=== PATIENT | male | born 1960 ===

== ENCOUNTER 2019-12-23 01:07 | Inpatient (IN) ==
[2019-12-23] MEDS ORDERED: ZOFRAN IV ONE (01:38)
--- NOTE | 2019-12-23 01:51 | PROVIDER DOCUMENTATION ---
This chart was entered by Jessica Meier Scribe, acting as scribe for Ana Paula Royal MD. HPI-General Adult - General Chief Complaint: Nausea Stated Complaint: DECREASED APPETITE, NAUSEATED Time Seen by Provider: 12/23/19 01:18 Source: patient Allergies/Adverse Reactions: Patient Allergies Allergy/AdvReac Type Severity Reaction Status Date / Time No Known Allergies Allergy Verified 12/23/19 01:51 Home Medications: Home Medication List Medication Instructions Recorded Confirmed Last Taken Type Ondansetron Odt [Zofran Odt] 1 tab PO TID PRN 12/23/19 12/23/19 Unknown History Paroxetine [Paxil] 1 tab PO DAILY 12/23/19 12/23/19 Unknown History Ranitidine [Zantac] 1 tab PO DAILY 12/23/19 12/23/19 Unknown History - History of Present Illness -Gen Adult Nature of Presenting Problems: pt is a 59 yr old male presenting with 1 week complaint of nausea and decreased appetite, pt denies fever/chills, no vomiting or diarrhea. pt admits he was seen for same today at [facility], was given IV fluids but unsure what if any other medications or tests were given. pt admits he is from [place] and that he came to stay with son locally 12/05/19. pt denies any cold or respiratory complaints, denies abdominal pain Location of Pain/Injury: reports: none Pain Radiation: reports: no radiation Quality of Pain: reports: none Severity: reports: moderate Onset/Duration: reports: 1 week ago Timing: reports: still present Context/Activities at Onset: reports: light activity Modifying Factors: improves with: other medication (unknwon medications given at [facility]) Associated Symptoms: reports: loss of appetite, nausea. denies: diarrhea, fever/chills, shortness of breath, vomiting Similar Symptoms Previously?: Yes Recently seen or treated by another doctor?: Yes Review of Systems - Adult - REVIEW OF SYSTEMS - ADULT Constitutional: denies: chills, fever Eyes: reports: no symptoms reported Ears, Nose, Mouth & Throat: reports: no symptoms reported Cardiovascular: denies: chest pain, syncope Respiratory: denies: cough, shortness of breath Gastrointestinal: reports: nausea, poor appetite. denies: abdominal pain, diarrhea, vomiting Genitourinary: denies: dysuria, frequency Musculoskeletal: denies: back pain, muscle aches, muscle weakness Integumentary: reports: no symptoms reported Neurological: denies: dizziness/vertigo, headache/migraines, syncope Psychiatric: reports: no symptoms reported Endocrine: reports: no symptoms reported Hematologic/Lymphatic: reports: no symptoms reported Allergic/Immunologic: reports: no symptoms reported All Other Systems: Reviewed and Negative Past History - Adult - PAST MEDICAL HISTORY-ADULT Review of Records: reports: Nursing Assessment Review, Medications Reviewed, Social history reviewed & non-contributory. Major Childhood Illnesses: reports: denies history Cardiovascular: reports: denies history Respiratory: reports: denies history Gastrointestinal: reports: denies history Obstetrical/Gynecological: reports: denies history Genitourinary: reports: denies history Musculoskeletal: reports: denies history Neurological: reports: denies history Endocrine/Immune: reports: denies history Other Conditions: reports: denies history - IMMUNIZATION STATUS Childhood Immunizations: See Nurse Assessment Flu Vaccine: See Nurse Assessment - FAMILY HISTORY Family History: reviewed, not pertinent - SOCIAL HISTORY Living Situation: family Physical Exam-General - PHYSICAL EXAM-ADULT Initial Vital Signs Reviewed: Yes - CONSTITUTIONAL General Appearance: appears well, alert, no apparent distress - EYES Eyes: PERRL/EOMI - HEAD, EARS, NOSE, MOUTH & THROAT HENMT: normocephalic/atraumatic - NECK Neck: supple, normal inspection - RESPIRATORY Respiratory: chest non-tender, lungs clear, normal breath sounds, no respiratory distress, no accessory muscle use - CARDIOVASCULAR Cardiovascular: normal peripheral pulses, no edema, bradycardia - GASTROINTESTINAL (ABDOMEN) Abdominal Exam: normal bowel sounds, non tender, soft. negative: distended, guarding, rigid, rebound - LYMPHATIC Lymphatic: no adenopathy - MUSCULOSKELETAL Back Exam: normal inspection, no CVA tenderness, no vertebral tenderness Extremity: normal range of motion, non-tender, normal inspection, no pedal edema - SKIN Integumentary: normal color, normal turgor, warm/dry - NEUROLOGIC Neurologic: grossly normal, no motor/sensory deficits - PSYCHIATRIC Psych/Mental Status: normal mood/affect, oriented x 3 Progress - PLAN OF CARE/RESULTS Progress/Plan/Lab Results: Vital Signs - 8 hr 12/23/19 01:12 Temperature 98 F Pulse Rate 61 Respiratory Rate 15 Blood Pressure 152/90 O2 Sat by Pulse Oximetry 100 Orders Category Date Time Status Saline Loc NOW Care 12/23/19 01:38 Active CHEST-PORTABLE [RAD] Stat Exams 12/23/19 01:[address] ABD/PELVIS W/IV CONT ONLY [CT] Stat Exams 12/23/19 01:36 Ordered CBC WITH ELECTRONIC DIFF [HEME] Stat Lab 12/23/19 01:36 Uncollected COMPREHENSIVE METABOLIC PANEL [CHEM] Stat Lab 12/23/19 01:36 Uncollected LIPASE [CHEM] Stat Lab 12/23/19 01:36 Uncollected MAGNESIUM [CHEM] Stat Lab 12/23/19 01:38 Uncollected TROPONIN T HIGH SENSITIVITY Stat Lab 12/23/19 01:36 Uncollected URINALYSIS W/POSS RFLX CULT [URINALYSIS] Stat Lab 12/23/19 01:36 Uncollected URINE DRUG SCREEN Stat Lab 12/23/19 01:36 Uncollected Ondansetron [Zofran] Med 12/23/19 01:38 Discontinued 4 mg IV NOW ONE Result Diagrams: 12/23/19 01:50 12/23/19 01:50 - EKG 1 Time of EKG reading by physician:: 03:15 EKG Read and Signed by:: Ana Paula Royal EKG Interpretation (*Must complete 3 of following elements*): Normal Rate: 68 Rhythm: NSR [place]: normal QRS: normal CA Interval: normal ST Wave: normal Prior EKG Comparison: no prior EKG - XRAY 1 XRAY Study: Chest Impression: Normal - CT/MRI 1 CT Study: Abdomen (indeterminate solid, left paraspinal pelvic soft tissue mass. Given positionneurogenic tumor vs extra adrenal pheochromocytoma are considerations. Consider non emergent MRI. Also consider VMA levels and non emergent MIBG) - CONSULTS/PCP/HOSPITALIST Notification #1 *Consult/PCP/Hospitalist*: Dr Naik Time Discussed: 02:46 Consult Disposition: Admit (Hold off on giving IVF and he will order what he would like.) Departure - Departure Date of Disposition Decision: 12/23/19 Time of Disposition Decision: 02:48 DIAGNOSIS: Hyponatremia, Nausea Abdominal mass Qualifiers: Abdominal location: other location Qualified Code(s): R19.09 - Other intra- abdominal and pelvic swelling, mass and lump Disposition: ADMITTED INPATIENT 09 Certified Medical Emergency: Emergent Condition: Stable - Critical Care Note This patient required my direct & personal management of CC.: No Attestation - Physician/ CATY Attestation Patient care was provided by Advanced Practice Provider:: No The physician spent face to face time with patient:: Yes Advanced Practice Provider documentation review:: Supervising physician onsite and consulted in the evaluation and care of this patient. The physician did have a face to face encounter with the patient. This chart was documented by the indicated scribe, (Jessica Meier Scribe) and accurately reflects the services I performed and decisions made by me, Ana Paula Royal MD, as attested by the provider's signature.
[2019-12-23 02:08] LABS: BASO# 0.06 X1000 (0.0-0.2); BASO% 0.7 % (0.0-0.8); EOS# 0.21 X1000 (0.0-0.7); EOS% 2.5 % (0.0-10.0); HEMATOCRIT 35.5 % (42.0-52.0); HEMOGLOBIN 12.1 g/dL (14.0-18.0); LYMPH# 4.12 X1000 (1.2-3.4); LYMPH% 48.5 % (20.5-51.1); MCH 25.7 PG (27-31); MCHC 34.1 g/dL (33-37); MCV 75.5 FL (81-99); MONO# 0.55 X1000 (0.11-0.59); MONO% 6.5 % (1.7-9.3); MPV 10.4 FL (7.4-10.4); NEUT# 3.56 X1000 (1.4-6.5); NEUT% 41.8 % (42.2-75.2); PLT 216 X1000 (130-400); RDW 12.6 % (11.5-14.5)
[2019-12-23 02:41] LABS: AGAP 11; ALB/GLOB RATIO 1.4; ALKALINE PHOSPHATASE 49 U/L (32-122); BUN 12 mg/dL (8-22); CALCIUM 8.3 mg/dL (8.8-10.2); CHLORIDE 83 mmol/L (98-107); COSMO 234; CREATININE 0.8 mg/dL (0.7-1.2); GLUCOSE 96 mg/dL (70-104); GOT 28 U/L (10-34); GPT 18 U/L (10-44); LIPASE 17 U/L (13-60); MAGNESIUM 1.6 mg/dL (1.5-2.7); SODIUM 114 mmol/L (136-145); TCO2 22 mmol/L (25-35); TOTAL BILIRUBIN 0.61 mg/dL (0.20-1.00); TOTAL PROTEIN 6.9 g/dL (6.3-8.3)
[2019-12-23 02:48] LABS: URINE SOURCE CLEAN CATCH
[2019-12-23 02:51] LABS: BILIRUBIN URINE NEGATIVE (NEGATIVE); BLOOD URINE NEGATIVE (NEGATIVE); COLOR YELLOW; GLUCOSE URINE NEGATIVE (NEGATIVE); KETONE URINE NEGATIVE (NEGATIVE); LEUKOCYTES URINE NEGATIVE (NEGATIVE); NITRITE URINE NEGATIVE (NEGATIVE); PH URINE 7.5; PROTEIN URINE NEGATIVE (NEGATIVE); SP GRAVITY URINE 1.013; TURBIDITY URINE HAZY (CLEAR); UROBILINOGEN URINE NORMAL (NORMAL)
[2019-12-23 02:53] LABS: UR EPITHELIAL CELLS <10 /HPF (<10); URINE BACTERIA NEGATIVE /HPF; URINE RBC <10 /HPF (<10); URINE WBC <10 /HPF (<10)
[2019-12-23 03:05] LABS: UR AMPHETAMINES QUAL NONE DETECTED (NONE DETECT); UR BARBITUATES QUAL NONE DETECTED (NONE DETECT); UR BENZODIAZEPIN QUAL NONE DETECTED (NONE DETECT); UR CANNABINOIDS QUAL NONE DETECTED (NONE DETECT); UR COCAINE QUAL NONE DETECTED (NONE DETECT); UR METHADONE QUAL NONE DETECTED (NONE DETECT); UR OPIATES QUAL NONE DETECTED (NONE DETECT); UR OXYCODONE QUAL NONE DETECTED (NONE DETECT); UR PCP QUAL NONE DETECTED (NONE DETECT)
[2019-12-23] MEDS ORDERED: NACL 3% IV ONE (03:10)
[2019-12-23] MEDS ORDERED: SODIUM CHLORIDE 0.9% INJ ONE (03:21)
[2019-12-23] MEDS ORDERED: PHENERGAN IV ONE (03:21)
[2019-12-23 04:01] LABS: MAGNESIUM 1.5 mg/dL (1.5-2.7); PHOSPHORUS 3.5 mg/dL (2.7-4.5)
--- NOTE | 2019-12-23 04:04 | EKG Report ---
Test Performed on : 12/23/2019 03:12:59 AM Test Reason : hyponatremia Blood Pressure : / mmHG Vent. Rate : 068 BPM Atrial Rate : 068 BPM P-R Int : 210 ms QRS Dur : 104 ms QT Int : 454 ms P-R-T Axes : 047 050 067 degrees QTc Int : 482 ms Sinus rhythm. with 1st degree AV block. Otherwise normal ECG No previous ECGs available Confirmed by Lele Thibodeaux MD ([id number]) on 12/24/2019 4:34:56 PM
[2019-12-23] MEDS ORDERED: TYLENOL PO PRN (04:36)
--- NOTE | 2019-12-23 04:42 | HISTORY AND PHYSICAL ---
PRIMARY CARE PHYSICIAN: No PCP. HISTORY OF PRESENT ILLNESS: Mr. Segura is a 59-year-old man of [place] extraction from [place], who comes in complaining of 1 month history of nausea but no vomiting. He has tried several times to induce emesis without any success. He denies any denies any abdominal pain, but he says his appetite has been declining and he has lost about 25 pounds over the last 3 months. He denies any dysphagia, but over the last week he has been having occasional night sweats but no fever. No upper respiratory or cardiorespiratory symptoms. No genitourinary complaints. He denies any arthralgia or rash. He says his bowel movements have not changed and denies any melena or hematochezia. Says he is frequently belching too. Also, admits to having generalized weakness. REVIEW OF SYSTEMS: Twelve system review was done. Positive findings per HPI. ALLERGIES: No known allergies. SOCIAL HISTORY: Does not smoke, drink, or use drugs. He is currently residing with his son. HOME MEDICATIONS: Zofran 4 mg t.i.d. p.r.n., Paxil 10 mg daily, Zantac 150 mg daily. FAMILY HISTORY: Negative for heart disease, cancer, or diabetes. LABORATORY WORK: Notable for white count 8000, hemoglobin and hematocrit 12 and 35, platelets of 216,000, MCV of 75. Sodium is 114, BUN is 12, creatinine 0.8, magnesium is 1.6. Lipase is normal. UDS is negative. Urinalysis normal. CT abdomen preliminary report shows a 2 x 3 cm left paraspinal mass near the area of the iliac artery bifurcation. Could represent possible neuroendocrine tumor along the left sympathetic chain. Chest film is rotated, normal cardiac size. No overt mass or infiltrate noted. PHYSICAL EXAMINATION: VITAL SIGNS: Blood pressure 143/93, temperature is 98.1, respiratory rate is 20, pulse rate is 69, 100% on room air. GENERAL: He is a middle-aged [place] man who is not in acute distress. He is A and O x3 with normal mood and affect. HEENT: Head is normocephalic, atraumatic. Eyes, MATT. EOMI is intact. He is anicteric, not pale. ENT and oropharynx exam is normal. No cyanosis NECK: Supple. No JVD or carotid bruit. No thyromegaly. No cervical or supraclavicular lymphadenopathy. CHEST: Clear when auscultated in both lung fontanez. CARDIOVASCULAR: First and second heart sounds heard. No gallops, rubs. Rhythm is regular. ABDOMEN: Slightly distended, soft with no focal areas of tenderness. No mass or organomegaly. RECTAL: Exam is deferred. EXTREMITIES: The patient has good distal pulse volumes, regular, symmetrical. No edema, clubbing or peripheral cyanosis. NEUROLOGICAL: No gross focal deficits. SKIN: Intact. No breakdown, lesions or erythema. MUSCULOSKELETAL: Exam is grossly normal. ASSESSMENT: 1. Euvolemic, hypotonic, hyponatremia, probably secondary to paroxetine. 2. Microcytic anemia. 3. Left soft tissue paraspinal mass. Etiology yet to be determined. PLAN: 1. We will cautiously replace sodium at a rate of 0.3 millimoles per hour avoiding over- correction. We will check BMP q.6 and notify medical assistant cardiology each time. Rate of 3% normal saline can then be adjusted accordingly. 2. Discontinue Paxil. TSH, uric acid and spot urine sodium have all been ordered. 3. Microcytic anemia. We will do anemia workup and needs to be followed accordingly. 4. Regarding said mass noted on CT scan, we will order an MRI to further delineate mass since it is of cyst tissue consistency. Depending on the findings of the MRI which maybe in versus outpatient, the patient may need to see General Surgery or an insulation cutter. We will also do upper GI series study because the patient does have features of gastroparesis noted on his CAT scan, which the etiology of this has yet to be determined. cc: Sohail Naik MD [facility]
[2019-12-23 05:25] LABS: RETIC% 0.86 % (0.8-2.1); RETIC-HE 31.9 PG (28.2-36.6)
--- NOTE | 2019-12-23 07:21 | Diag Imaging Result Doc PS360 ---
EXAM: CT ABD/PELVIS W/IV CONT ONLY HISTORY: nausea, decreased appetite TECHNIQUE: CT abdomen and pelvis with intravenous contrast, but without oral contrast. COMPARISON: None. FINDINGS: No calcified gallstones or adjacent inflammation. Normal liver, spleen, pancreas, adrenal glands, and kidneys. No hydronephrosis. Normal aorta. No bowel obstruction. No inflammation about the cecum. No abscess. No ascites. The urinary bladder is distended and normal. Normal pelvis. Anterior to the left side of the sacrum is a circumscribed hypodense mass measuring 2.7 x 3.0 x 4.8 cm. This is posterior to the iliac arteries and lateral to the common iliac vein. This is medial to the iliopsoas muscle. IMPRESSION: Circumscribed left parasacral mass. 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 A preliminary report was given at 3:43 AM This exam was performed using automated exposure control, adjustment of mA or kV according to patient size, and/or use of iterative reconstruction technique. Electronically signed by Ravi Feldman 12/23/2019 7:19 AM
--- NOTE | 2019-12-23 07:39 | Diag Imaging Result Doc PS360 ---
EXAM: CHEST-PORTABLE HISTORY: nausea, decreased appetite TECHNIQUE: Single view COMPARISON: None. FINDINGS: The lungs are well expanded. The heart is not enlarged. The vessels are not distended. There are no infiltrates. No effusion identified. IMPRESSION: Negative exam. Electronically signed by Ravi Feldman 12/23/2019 7:37 AM
[2019-12-23] MEDS: PEPCID PO SCH (08:33)
[2019-12-23] MEDS: ZOFRAN IV PRN ×2 (08:33→15:40)
[2019-12-23] MEDS: LOVENOX SUBQ SCH (08:36)
[2019-12-23 09:36] LABS: AGAP 13; BUN 10 mg/dL (8-22); CALCIUM 8.7 mg/dL (8.8-10.2); CHLORIDE 76 mmol/L (98-107); COSMO 223; CREATININE 0.9 mg/dL (0.7-1.2); GLUCOSE 97 mg/dL (70-104); POTASSIUM 3.9 mmol/L (3.5-5.1); TCO2 21 mmol/L (25-35)
[2019-12-23 09:38] LABS: SODIUM 110 mmol/L (136-145)
[2019-12-23] MEDS ORDERED: SAMSCA PO ONE (09:40)
--- NOTE | 2019-12-23 12:16 | PROGRESS NOTE ---
DATE: 12/23/2019 SUBJECTIVE: This morning, Mr. Segura refers to be feeling sick. He said he is nauseated but he has not vomited. He said he does not know where he is. He seems remarkably confused. I understand he has gotten a total of about 200 mL of fluid which is hypertonic. However, only 42 is charted so I am not sure how much he has gotten in total. OBJECTIVE: Vital signs: Blood pressure is 138/85, pulse of 63, respirations is 17, temperature 97.3 degrees. General: Mr. Segura is a 59-year-old [place] gentleman. He is in bed. He is not in any cardiopulmonary distress. HEENT: Mucosa is pink, moist, anicteric, acyanotic. Neck: Supple. Chest: Clear to auscultation. Cardiovascular: Regular rate and rhythm. Gastrointestinal: Abdomen is soft, nontender. Extremities: No pedal edema. Central nervous system: Patient is awake, alert, oriented to person, very disoriented to place and to time. He is occasionally very noncoherent. LABORATORY DATA: Chemistry: Sodium was 114 on admission, it is down to 110 after the hypertonic. As I said, I am not 100% sure how much he has gotten in total. ASSESSMENT: 1. Altered mental status with no focalization, presumably from symptomatic hyponatremia. 2. Severe hyponatremia with normal fluid status concerning for syndrome of inappropriate antidiuretic hormone hypersecretion. The patient does not seem to have been on any medication to have caused this except paroxetine that I see on his medication list. It is very possible this could be a paraneoplastic manifestation of an underlying malignancy, taking into consideration patient's CT findings. 3. Left parasacral mass of unclear etiology. We will start working this is up and we will get Oncology to evaluate him as well. 4. Microcytic anemia. We will need to check iron studies. PLAN: In general, Mr. Segura looks quite encephalopathic. I presume it is all related to his hyponatremia. I have consulted Nephrology and discussed the findings with Dr. Piña. We are going to get stat BMP. Mr. Segura has been given Samsca earlier on today. As I said, I was not 100% sure how much of hypertonic saline he got, but he still continues to be altered. We will get stat BMP and depending on that, we will make further decisions. We will also get a CT scan of his head and a CT scan of the chest with contrast as a workup for this mass in the abdomen. cc: Alex Rubio MD
--- NOTE | 2019-12-23 12:47 | Diag Imaging Result Doc PS360 ---
EXAM: CT HEAD W/O CONTRAST HISTORY: encephalopathy TECHNIQUE: CT head without contrast COMPARISON: None. FINDINGS: No parenchymal hemorrhage. No epidural or subdural hematoma. No subarachnoid hemorrhage. The pituitary is enlarged.. No hydrocephalus. No sinus opacification. IMPRESSION: 1.No hemorrhage 2.Large pituitary This exam was performed using automated exposure control, adjustment of mA or kV according to patient size, and/or use of iterative reconstruction technique. Electronically signed by Ravi Feldman 12/23/2019 12:44 PM
[2019-12-23 13:55] LABS: AGAP 13; BUN 10 mg/dL (8-22); CALCIUM 8.9 mg/dL (8.8-10.2); CHLORIDE 75 mmol/L (98-107); COSMO 220; CREATININE 0.8 mg/dL (0.7-1.2); GLUCOSE 117 mg/dL (70-104); POTASSIUM 3.9 mmol/L (3.5-5.1); TCO2 20 mmol/L (25-35)
[2019-12-23 14:00] LABS: SODIUM 107 mmol/L (136-145)
[2019-12-23] MEDS ORDERED: NACL 3% 500 ML IV ONE (14:03)
[2019-12-23] MEDS ORDERED: NACL 3% 200 ML IV ONE ×2 (16:52→17:00)
--- NOTE | 2019-12-23 17:02 | NEPHROLOGY CONSULTATION ---
DATE: 12/23/2019 REASON FOR CONSULTATION: Hyponatremia. HISTORY OF PRESENT ILLNESS: Mr. Segura is a 59-year-old man who apparently resides in [facility]. He is really not able to give me much history at all. He complains of being nauseated for several days, but he cannot quantify the duration. He does not admit to any other symptoms. He denies taking any medications or having any medical problems. Dr. Naik's initial note suggest recent 25-pound weight loss, but otherwise negative except for weakness. PAST MEDICAL HISTORY: None listed. HOME MEDICATIONS: Again the patient denies any medications, but the chart indicates Zofran, Paxil, and Zantac. SOCIAL HISTORY: Living with his son currently. No alcohol or tobacco. FAMILY HISTORY: Otherwise not obtainable. REVIEW OF SYSTEMS: Otherwise not obtainable. PHYSICAL EXAMINATION: Vital Signs: Blood pressure 141/85, heart rate 66, respirations 17, afebrile. General: He is a healthy-appearing man in no acute distress. Lying at 30 degrees. Skin: Warm and dry. No rashes. No lesions. HEENT: Pupils are equal. Conjunctivae are pink. Oropharynx is clear. Normal tongue. Normal teeth. Neck: Supple. Trachea is midline. Neck veins are not distended. Heart: PMI nondisplaced. Regular rate and rhythm without murmurs, rubs or gallops. Lungs: Have equal breath sounds without crackles or wheezes. Abdomen: Soft, nontender. Bowel sounds are present. Extremities: Have no edema, clubbing or cyanosis. Neurologic: Nonfocal except for altered sensorium. IMPRESSION: Hyponatremia. Appears euvolemic on examination and urine sodium was 153. Renal function is normal. Sodium has actually fallen since admission from 114 on presentation to 107 at 1:00 p.m. this afternoon. This has happened in the context of treatment with 1 dose of Samsca and 3% saline administration. Urine sodium again was 153, urine osmolality was 249 at the time that his serum osmolality was 234. Etiology is not obvious. 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 I discussed the case with Dr. Rubio this morning. We will give a bolus doses of hypertonic saline and remeasure his sodium. We will target correction to around 112 over the next 24 hours. Slow continual progression from there. We will continue to use hypertonic saline as our primary tool until his sodium is improved. cc: Adolph Piña MD
[2019-12-24 06:27] LABS: BASO# 0.02 X1000 (0.0-0.2); BASO% 0.3 % (0.0-0.8); EOS# 0.03 X1000 (0.0-0.7); EOS% 0.4 % (0.0-10.0); HEMATOCRIT 40.2 % (42.0-52.0); LYMPH# 1.79 X1000 (1.2-3.4); LYMPH% 25.9 % (20.5-51.1); MCH 26.2 PG (27-31); MCHC 34.8 g/dL (33-37); MCV 75.1 FL (81-99); MONO# 0.61 X1000 (0.11-0.59); MONO% 8.8 % (1.7-9.3); MPV 11.2 FL (7.4-10.4); NEUT# 4.45 X1000 (1.4-6.5); NEUT% 64.6 % (42.2-75.2); PLT 259 X1000 (130-400); RBC 5.35 XMIL (4.7-6.1); RDW 13.2 % (11.5-14.5)
[2019-12-24 06:53] LABS: AGAP 14; ALBUMIN 4.8 g/dL (3.5-5.0); BUN 12 mg/dL (8-22); CALCIUM 10.3 mg/dL (8.8-10.2); CHLORIDE 95 mmol/L (98-107); COSMO 264; CREATININE 1.1 mg/dL (0.7-1.2); GLUCOSE 92 mg/dL (70-104); PHOSPHORUS 3.2 mg/dL (2.7-4.5); POTASSIUM 4.3 mmol/L (3.5-5.1); SODIUM 132 mmol/L (136-145); TCO2 23 mmol/L (25-35)
[2019-12-24 07:50] LABS: FERRITIN 593 ng/mL (30-400)
[2019-12-24] MEDS: LOVENOX SUBQ SCH (08:19)
[2019-12-24] MEDS: PEPCID PO SCH (08:20)
--- NOTE | 2019-12-24 09:20 | Diag Imaging Result Doc PS360 ---
CT THORAX W/CONTRAST - 12/24/2019 INDICATION: abdomen mass. r/o lung primary COMPARISON: Chest x-ray 12/23/2019 FINDINGS: No mass or adenopathy. The lungs are clear. Heart size is normal. No pneumothorax or pleural effusion. Bones are intact and well mineralized. IMPRESSION: Negative exam. This exam was performed using automated exposure control, adjustment of mA or kV according to patient size, and/or use of iterative reconstruction technique Electronically signed by Kingston Urena 12/24/2019 9:18 AM
[2019-12-24] MEDS ORDERED: D5W 500 ML IV SCH (11:42)
[2019-12-24] MEDS: D5W 500 ML IV SCH ×3 (11:42→11:44)
--- NOTE | 2019-12-24 14:40 | PROGRESS NOTE ---
DATE: 12/24/2019 SUBJECTIVE: I have seen and examined Mr. Segura this morning. Mr. Segura refers to be doing a lot better. He looks more conversational. He is more alert and he is oriented. He looks remarkably better than yesterday, sustaining a rational conversation. He said he does not remember anything about yesterday. This morning, Mr. Segura tells me that he lives in [facility]. He has been treated for mild depression on Paxil for about 3 months. He said he is here in [facility] for the past 2 weeks with his son and that for the past couple of days, he has been very dizzy, very low, feeling sickly, and some headaches. That is the main reason why he was brought into the emergency room. He said he went to a clinic and from there, he came here. He also said that he has been losing weight. For the past couple of months, he said he has lost about 20 pounds. Otherwise, he is in good spirits. OBJECTIVE: Vital signs: Blood pressure is 135/83, pulse of 75, respirations are 17, temperature is 98 degrees, the patient is saturating 100% on room air. General Examination: Mr. Segura is a 59-year-old, elderly, male. He was in bed. No distress. HEENT: Mucosa is pink and moist. Anicteric. Acyanotic. Neck: Supple. Chest: Clear to auscultation. There were no crepitations. No rhonchi. Cardiovascular: Regular rate and rhythm. No murmurs, no rubs, no gallops. GI: Abdomen was soft, nontender. Bowel sounds were present. Extremities: No pedal edema. INSIDE BARREL LATHE OPERATOR: The patient was awake, alert, very conversational, very articulate. He said he got slightly dizzy when he stood up but otherwise, he felt okay. Laboratory Data: The patient's CBC is reviewed. No major abnormality. He still has macrocytosis. His early chemistry this morning showed a sodium of 132 which has remarkably jumped from 114 yesterday. That is 18 mEq increase in 24 hours which seems to be more than what we anticipated. Otherwise, other laboratory data are all within normal range. ASSESSMENT: 1. Altered mental status with no focalization, secondary to symptomatic hyponatremia, improved. 2. Severe hyponatremia with euvolemic status concerning for syndrome of inappropriate antidiuretic hormone secretion. The patient's paroxetine has been discontinued. He underwent hypertonic saline therapy. However, the increase in the sodium has been extremely robust and nephrology has started him on D5. We are going to continue to monitor the sodium. 3. Left parasacral mass of unclear etiology. We are pending oncology evaluation. 4. Macrocytic anemia with normal iron studies, concerning for anemia of chronic disease. 5. Weight loss of unclear etiology. According to Mr. Segura, he has lost about 20 pounds. With the mass in the left parasacral area, this is concerning if this is a malignant mass causing some of his weight loss. We will continue the diagnostic approach for the mass. For now, CT scan of the chest was unremarkable. We will be pending oncology evaluation to see if they prefer a PET scan as an outpatient versus having to biopsy this mass during the hospital course. 6. History of mild depression. The patient was on paroxetine. This has been withheld because of severe hyponatremia. Clinically, Mr. Segura is not exhibiting any signs of depression at this point. PLAN: In general, I think Mr. Segura is doing a lot better. His mentation has significantly improved. He refers slight dizziness when he is standing up so we are going to check his orthostatic vitals just to see. His sodium has increased more than anticipated so he has been started on D5 and we are going to continue to monitor this. cc: Alex Rubio MD
[2019-12-24] MEDS ORDERED: MELATONIN PO SCH (21:00)
[2019-12-25 06:30] LABS: AGAP 12; ALBUMIN 4.2 g/dL (3.5-5.0); BUN 20 mg/dL (8-22); CALCIUM 9.7 mg/dL (8.8-10.2); CHLORIDE 100 mmol/L (98-107); COSMO 269; CREATININE 1.1 mg/dL (0.7-1.2); GLUCOSE 102 mg/dL (70-104); PHOSPHORUS 3.4 mg/dL (2.7-4.5); POTASSIUM 4.8 mmol/L (3.5-5.1); SODIUM 133 mmol/L (136-145); TCO2 21 mmol/L (25-35)
[2019-12-25] MEDS: LOVENOX SUBQ SCH (08:25)
[2019-12-25] MEDS: PEPCID PO SCH (08:25)
--- NOTE | 2019-12-25 10:49 | Diag Imaging Result Doc PS360 ---
EXAM: MRI ABDOMEN W/WO CONTRAST 12/23/2019 HISTORY: L paraspinal mass TECHNIQUE: Axial T2, water 3-D, in and out of phase T1, water 3-D fat 3-D in an out of phase postcontrast axial, T2, water 3-D, that 3-D pre and post contrast coronal. COMMENT: There is a well-circumscribed mass anterior to the sacral zach on the left measuring 4.7 x 2.6 x 2.8 cm. This is slightly inhomogeneous in signal intensity in its interior but is largely hyper intense on T2 and decreased signal intensity on the T1-weighted images. It is not particularly suppressed by the out of phase T1 images. There is a slight degree of enhancement which is somewhat inhomogeneous in distribution within the mass. There are no studies prior to the CT of the abdomen and pelvis from 12/23/2019. The mass appears to be along the course of the sciatic nerve. IMPRESSION: Well-circumscribed left pelvic parasacral mass having signal characteristics and location suggesting a schwannoma. Electronically signed by Calixto Gupta 12/25/2019 10:46 AM
--- NOTE | 2019-12-25 10:52 | Diag Imaging Result Doc PS360 ---
EXAM: GI SERIES WITH BA SWALLOW 12/25/2019 HISTORY: abd bloating nausea TECHNIQUE: Air contrast upper GI series, 13 images, one minute 26 seconds fluoroscopy time, 1282.7 cGy a. COMMENT: The patient is able to swallow barium without difficulty. There is a small sliding hiatal hernia. No reflux was demonstrated during the examination and there is no evidence of stricture or ulceration. The stomach, the duodenum, and the remainder of the visualized small bowel are within normal limits. IMPRESSION: Small sliding hiatal hernia. No evidence of acute disease otherwise. Electronically signed by Calixto Gupta 12/25/2019 10:50 AM
--- NOTE | 2019-12-25 11:06 | NEPHROLOGY PROGRESS NOTE ---
DATE: 12/25/2019 The patient is not in his room. His sodium is 133 this morning. It has been stable over the last 24 hours. His repeat urine osmolality was 249 in the pumper hand of the . Unfortunately, he received a dose of Samsca within the prior 24 hours so this data is difficult to interpret. Given that he is improved, I would simply observe. Obviously, he corrected more rapidly than desired but according to the notes, there has not been any consequences. If I can be of further assistance, please do not hesitate to call. cc: Adolph Piña MD
[2019-12-25 16:15] VITALS: BP 106/87
--- NOTE | 2019-12-25 17:50 | DISCHARGE SUMMARY ---
ADMISSION DATE: 12/23/2019 DISCHARGE DATE: 12/25/2019 DISPOSITION: Home. FOLLOW-UP: 1. Dr. Piña. 2. Dr. Stewart. 3. Appointment with [facility] [place]. ADMISSION DIAGNOSES: 1. Euvolemic hypotonic hyponatremia, presumably secondary to paroxetine. 2. Microcytic anemia. 3. Left soft tissue paraspinal mass. DIAGNOSIS AT THE TIME OF DISCHARGE: 1. Altered mental status on presentation with no focalization secondary to symptomatic hyponatremia, resolved. 2. 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 This was discontinued. 3. Left parasacral mass of unclear etiology. MRI suggests it could be schwannoma. Patient advised to follow up with [facility] [place] and also with Dr. Stewart. 4. Weight loss of unclear etiology. 5. History of mild depression. DISCHARGE MEDICATIONS: 1. Omeprazole 20 mg p.o. daily. 2. Zofran p.r.n. MEDICATION DISCONTINUED: Paroxetine. PRESENTING COMPLAINT: Dizziness, mild headache. HISTORY OF PRESENTING COMPLAINT: Mr. Segura is a 59-year-old gentleman who lives in [place], came to visit his son, but he has been progressively getting weaker and losing weight, so he was brought in for medical evaluation. In the ER, he was found to be euvolemic but his laboratory data reveals sodium was remarkably low, level was 114. He was admitted for further medical care. HOSPITAL COURSE: Mr. Segura was initially started on a very low dose, 3%, however his levels actually got worse. 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 He was given a dose of Samsca and Nephrology was consulted. Over the course of the hospital stay, his sodium, in 24 hours, increased more than 18 mEq, so he was given D5. His mentation, however, significantly improved to where he was able to sustain rational conversation. This morning, he refers to be doing well. He denies any new complaints. He underwent a CT scan and MRI of the abdomen which revealed that the left parasacral mass could be a schwannoma. There was a consult for Dr. Stewart to see him, but he prefers to follow up as an outpatient since he does not think there is anything for him to do now. He recommends the patient to follow up to be seen by a neurosurgeon. Mr. Segura has been advised to follow up with [facility] [place]. Currently he is asymptomatic. He feels well. He does not have any more dizziness. No headache and he feels energetic. We think he is at baseline and he can be discharged safely home to follow up on an outpatient basis. We have advised that he repeat his BMP in 1 week and follow up with Dr. Piña. All the discharge instructions have been discussed with him and he voiced understanding. TIME SPENT FOR DISCHARGE: 34 minutes. cc: Alex Rubio MD
== END 2019-12-25 17:05 | disposition home or self-care (01) | DRG 643 ==
LOC: ED 01:07 → 4N 03:25 → SUATTDRO 03:25 → 2N 03:45
PROVIDERS: ATTEND Internal Medicine